=== PATIENT | female | born 1975 | race Caucasian/White ===

== ENCOUNTER 2017-04-08 10:52 | Emergency (ER) | payer OTHER ==
[~2017-04-08] VITALS: Ht 160 cm; Wt 100.0 kg
[~2017-04-08 10:52] MED LIST: COLC0.6T PO; HYDR-3583 PO; NAPR500 PO; PROM25TA5 PO; ZOFR8TAB4 SL
[2017-04-08 10:58] VITALS: BP 147/87; PULSE 82; RESP 16; TEMP 97.8; O2SAT 96
[2017-04-08 11:32] LABS: AUTOMATED NEUTROPHIL # 3.9 TH/MM3 (1.8-7.7); BASOPHIL % 0.5 % (0.0-2.0); EOSINOPHIL # 0.4 TH/MM3 (0-0.4); EOSINOPHIL % 5.7 % (0.0-4.0); HEMOGLOBIN 13.8 GM/DL (11.6-15.3); LYMPH % 29.6 % (9.0-44.0); MEAN CELL VOLUME 86.2 FL (80.0-100.0); MEAN CORPUSCULAR HEMOGLOBIN 30.4 PG (27.0-34.0); MEAN CORPUSCULAR HGB CONC 35.3 % (32.0-36.0); MEAN PLATELET VOLUME 6.9 FL (7.0-11.0); MONO % 6.7 % (0.0-8.0); MONOCYTE # 0.5 TH/MM3 (0-0.9); NEUT % 57.5 % (16.0-70.0); PLATELET COUNT 304 TH/MM3 (150-450); RED BLOOD COUNT 4.52 MIL/MM3 (4.00-5.30); RED CELL DISTRIBUTION WIDTH 13.9 % (11.6-17.2); WHITE BLOOD COUNT 6.9 TH/MM3 (4.0-11.0)
[2017-04-08 11:48] LABS: ALBUMIN 4.2 GM/DL (3.4-5.0); AST (GOT) 14 U/L (15-37); BLOOD UREA NITROGEN 9 MG/DL (7-18); CALCIUM 9.1 MG/DL (8.5-10.1); CHLORIDE 108 MEQ/L (98-107); CREATININE 0.74 MG/DL (0.50-1.00); GLOMERULAR FILTRATION RATE 87 ML/MIN (>89); GLUCOSE,RANDOM 90 MG/DL (74-106); SODIUM (NA) 142 MEQ/L (136-145)
[2017-04-08 11:49] LABS: ALT (GPT) 19 U/L (10-53)
[2017-04-08 11:51] LABS: ALKALINE PHOSPHATASE 74 U/L (45-117); TOTAL BILIRUBIN ADULT 0.3 MG/DL (0.2-1.0); TOTAL PROTEIN 7.4 GM/DL (6.4-8.2)
[2017-04-08 11:55] LABS: BILIRUBIN, URINE NEG (NEG); BLOOD, URINE NEG (NEG); GLUCOSE,URINE NEG (NEG); KETONE, URINE NEG (NEG); MUCUS URINE MANY /lpf (OCC); NITRITE,URINE NEG (NEG); PH, URINE 5.5 (5.0-8.5); SQUAMOUS EPITHELIAL CELL URINE 7 /hpf (0-5); URINE COLOR YELLOW (YELLW/STRAW); URINE LEUKOCYTE ESTERASE NEG (NEG)
[2017-04-08] MEDS ORDERED: SODIUM CHLOR 0.9% 1000 ML INJ 1,000 ML IV ONE (14:15)
--- NOTE | 2017-04-08 14:21 | PD ---
HPI . Vomiting Chief Complaint: GI Complaint Time Seen by Provider: 14:05 Travel History International Travel<30 days: No Contact w/Intl Traveler<30days: No Traveled to known affect area: No History of Present Illness HPI Patient presents with a four-day history of poor appetite and vomiting. She is also complaining with right upper quadrant abdominal pain which she rates 7/10. She states that she has a history of gastroparesis and peptic ulcer disease. She states that she was seen by her doctor yesterday who felt that she needed to have IV fluids. The area care physician attempted to arrange for IV fluids as an outpatient. That was reportedly unsuccessful and the patient presents to us today for same. She has not had fever. She has had no emesis today. She reports 3 episodes of emesis yesterday. She isn't aware of any modifying factors. 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) Cardiovascular Problems: No Diabetes: No Diminished Hearing: No Endocrine: No Gastrointestinal Disorders: Yes (CHRONIC NAUSEA) Genitourinary: No Hepatitis: No Hiatal Hernia: No Immune Disorder: Yes (mediterranean fever) Musculoskeletal: No Neurologic: No Psychiatric: No Reproductive: Yes (ENDOMETRIOSIS) Respiratory: No Thyroid Disease: No ?: Not : 1 Para: 2 Miscarriage: 1 Ovarian Cysts: Yes Past Surgical History Abdominal Surgery: Yes (LAPPROSCOPIC SURG - ENDOMETRIOSIS, ) Cardiac Surgery: No Cholecystectomy: Yes Endocrine Surgery: No Gynecologic Surgery: Yes (HYST ) Hysterectomy: Yes Thoracic Surgery: No Social History Alcohol Use: Yes (COUPLE OF TIMES A MONTH- WINE) Tobacco Use: Yes (1/2 PPD) Substance Use: No Allergies-Medications (Allergen,Severity, Reaction): Coded Allergies: metronidazole (Unverified Allergy, Severe, hives, 09/21/16) codeine (Unverified Adverse Reaction, Intermediate, nausea, 09/21/16) sulfamethoxazole (Unverified Adverse Reaction, Mild, NAUSEA, 09/21/16) trimethoprim (Unverified Adverse Reaction, Mild, NAUSEA, 09/21/16) Reported Meds & Prescriptions Reported Meds & Active Scripts Active Reported Omeprazole 20 Mg Tab 20 Mg PO BID Reglan (Metoclopramide HCl) 10 Mg Tab 10 Mg PO BID Zofran Odt (Ondansetron Odt) 8 Mg Tab 8 Mg SL Q8H PRN Review of Systems Except as stated in HPI: all other systems reviewed are Neg General / Constitutional: No: Fever, Chills Gastrointestinal: Positive: Nausea, Vomiting, Abdominal Pain, No: Diarrhea Genitourinary: No: Urgency, Frequency, Dysuria Physical Exam Narrative GENERAL: Awake and alert and in no acute distress. SKIN: warm/dry. HEAD: Normocephalic. Atraumatic. EYES: Pupils equal and round. No scleral icterus. No injection or drainage. ENT: No nasal bleeding or discharge. Mucous membranes pink and moist. NECK: Trachea midline. Full range of motion without pain.. CARDIOVASCULAR: Regular rate and rhythm. Heart sounds normal. RESPIRATORY: No accessory muscle use. Clear to auscultation. Breath sounds equal bilaterally. GASTROINTESTINAL: Abdomen soft. Nontender. Bowel sounds present. Nondistended. MUSCULOSKELETAL: No obvious deformities. NEUROLOGICAL: Awake and alert. No obvious cranial nerve deficits. Motor grossly within normal limits. Normal speech. PSYCHIATRIC: Appropriate mood and affect; insight and judgment normal. Data Data Last Documented VS Vital Signs Date Time Temp Pulse Resp B/P (MAP) Pulse Ox O2 Delivery O2 Flow Rate FiO2 04/08/17 14:33 62 17 123/67 (85) 76 20 134/72 (92) 80 25 136/84 (101) 04/08/17 14:24 96 Room Air 04/08/17 10:58 97.8 Orders Orders Complete Blood Count With Diff (04/08/17 11:01) Comprehensive Metabolic Panel (04/08/17 11:01) Urinalysis - C+S If Indicated (04/08/17 11:01) Lipase (04/08/17 11:01) Ed Urine Pregnancytest Poc (04/08/17 11:14) Orthostatic Vital Signs (04/08/17 14:10) Sodium Chlor 0.9% 1000 Ml Inj (Ns 1000 M (04/08/17 14:15) Metoclopramide Inj (Reglan Inj) (04/08/17 14:30) Labs Laboratory Tests Test 04/08/17 11:11 White Blood Count 6.9 TH/MM3 Red Blood Count 4.52 MIL/MM3 Hemoglobin 13.8 GM/DL Hematocrit 39.0 % Mean Corpuscular Volume 86.2 FL Mean Corpuscular Hemoglobin 30.4 PG Mean Corpuscular Hemoglobin Concent 35.3 % Red Cell Distribution Width 13.9 % Platelet Count 304 TH/MM3 Mean Platelet Volume 6.9 FL Neutrophils (%) (Auto) 57.5 % Lymphocytes (%) (Auto) 29.6 % Monocytes (%) (Auto) 6.7 % Eosinophils (%) (Auto) 5.7 % Basophils (%) (Auto) 0.5 % Neutrophils # (Auto) 3.9 TH/MM3 Lymphocytes # (Auto) 2.0 TH/MM3 Monocytes # (Auto) 0.5 TH/MM3 Eosinophils # (Auto) 0.4 TH/MM3 Basophils # (Auto) 0.0 TH/MM3 CBC Comment DIFF FINAL Differential Comment Urine Color YELLOW Urine Turbidity HAZY Urine pH 5.5 Urine Specific [place] 1.028 Urine Protein 30 mg/dL Urine Glucose (UA) NEG mg/dL Urine Ketones NEG mg/dL Urine Occult Blood NEG Urine Nitrite NEG Urine Bilirubin NEG Urine Urobilinogen LESS THAN 2.0 MG/DL Urine Leukocyte Esterase NEG Urine RBC 3 /hpf Urine WBC 1 /hpf Urine Squamous Epithelial Cells 7 /hpf Urine Mucus MANY /lpf Microscopic Urinalysis Comment CULT NOT INDICATED Blood Urea Nitrogen 9 MG/DL Creatinine 0.74 MG/DL Random Glucose 90 MG/DL Total Protein 7.4 GM/DL Albumin 4.2 GM/DL Calcium Level 9.1 MG/DL Alkaline Phosphatase 74 U/L Aspartate Amino Transf (AST/SGOT) 14 U/L Alanine Aminotransferase (ALT/SGPT) 19 U/L Total Bilirubin 0.3 MG/DL Sodium Level 142 MEQ/L Potassium Level 3.8 MEQ/L Chloride Level 108 MEQ/L Carbon Dioxide Level 24.0 MEQ/L Anion Gap 10 MEQ/L Estimat Glomerular Filtration Rate 87 ML/MIN Lipase 101 U/L [facility] Medical Decision Making Medical Screen Exam Complete: Yes Emergency Medical Condition: Yes Differential Diagnosis Differential diagnosis includes but is not limited to viral gastritis, food poisoning, pancreatitis, pneumonia, hepatitis, acute coronary syndrome, Narrative Course This patient presents with chief complaint of nausea and vomiting and the secondary complaint of upper abdominal pain. She reports a history of gastroparesis and peptic ulcer disease. She presents requesting IV fluids. IV fluids have been ordered. I will also give her a dose of Reglan. CBC & BMP Diagram 04/08/17 11:11 Total Protein 7.4, Albumin 4.2, Calcium Level 9.1, Alkaline Phosphatase 74, Aspartate Amino Transf (AST/SGOT) 14 L, Alanine Aminotransferase (ALT/SGPT) 19, Total Bilirubin 0.3 UA is negative. Orthostatic vital signs are negative. The history, exam, diagnostic testing, and current condition do not suggest any significant pathology to warrant further testing, continued ED treatment, admission, or surgical evaluation at this point. No EMC was found. The patient 's condition is stable and appropriate for discharge. Diagnosis Primary Impression: Vomiting Qualified Codes: R11.2 - Nausea with vomiting, unspecified Additional Impression: Abdominal pain Qualified Codes: R10.11 - Right upper quadrant pain Patient Instructions: Abdominal Pain (ED), Acute Nausea and Vomiting (DC), General Instructions Disposition: 01 DISCHARGE HOME Condition: Stable Josy Goodrich MD Apr 08, 2017 14:21
[2017-04-08 14:24] VITALS: BP 126/73; PULSE 67; RESP 21; O2SAT 96
[2017-04-08] MEDS ORDERED: REGL10TA5 PO (14:26)
[2017-04-08] MEDS ORDERED: OMEP20TA93 PO (14:26)
[2017-04-08] MEDS ORDERED: METOCLOPRAMIDE HCL 10 MG/2 ML VIAL IV PUSH ONE (14:30)
[2017-04-08 14:33] VITALS: BP_SYST 123; BP_SYST 134; BP_SYST 136; BP_DIAS 67; BP_DIAS 72; BP_DIAS 84; RESP 17; RESP 20; RESP 25
[2017-04-08] MEDS ORDERED: PROM1SUP7 RECTAL (15:42)
== END 2017-04-08 16:19 | disposition home or self-care (01) ==
LOC: NEPE 10:52
DX: R11.2 Nausea with vomiting, unspecified (principal); R10.11 Right upper quadrant pain; F17.210 Nicotine dependence, cigarettes, uncomplicated; Z88.2 Allergy status to sulfonamides; Z88.8 Allergy status to other drugs, medicaments and biological substances; Z88.5 Allergy status to narcotic agent; Z79.899 Other long term (current) drug therapy
CPT/HCPCS: 80053; 81001; 83690; 84703; 85025; 96374; 99284; J2765; J7030